=== PATIENT | female | born 1990 | race Native Hawaiian/Other Pacific Islander ===

== ENCOUNTER → 2021-07-13 | Outpatient (CLI) | payer OTHER | LOC: RAD 17:04 | PROVIDERS: ATTEND Nurse Practitioner Family | DX: U07.1 COVID-19 (principal) ==

== ENCOUNTER 2021-11-08 13:37 | Outpatient (CLI) | payer OTHER | END 2021-11-08 19:17 | disposition home or self-care (01) | LOC: RAD 13:37 | PROVIDERS: ATTEND Nurse Practitioner Family | DX: U07.1 COVID-19 (principal); R07.9 Chest pain, unspecified; M54.9 Dorsalgia, unspecified; R07.89 Other chest pain | CPT/HCPCS: 93005 ==

== ENCOUNTER 2022-09-11 18:55 | Emergency (ER) | payer OTHER ==
[~2022-09-11] VITALS: Ht 160 cm; Wt 85.7 kg
[2022-09-11 20:45] VITALS: BP 122/78
== END 2022-09-11 20:45 | disposition home or self-care (01) ==
LOC: ED 18:55
PROC: 2W3QX1Z Immobilization of Right Lower Leg using Splint (ICD-10-PCS; principal; 2022-09-11)
DX: S96.811A Strain of other specified muscles and tendons at ankle and foot level, right foot, initial encounter (principal); W10.8XXA Fall (on) (from) other stairs and steps, initial encounter; Y92.89 Other specified places as the place of occurrence of the external cause
CPT/HCPCS: 99283